=== PATIENT | male | born 1945 | race Caucasian/White ===

== ENCOUNTER 2023-10-30 09:17 | Outpatient (CLI) | payer MEDICARE ==
[2023-10-30 11:37] LABS: #Basophils 0.09 10x3/uL (0.0-0.2); %Basophils 0.7 % (0.0-1.0); %Eosinophils 2.1 % (0.0-10.0); %Lymphocytes 18.2 % (21.0-51.0); %Monocytes 6.7 % (0.0-10.0); %Neutrophils 71.9 % (42.0-75.0); Hematocrit 43.8 % (42.0-52.0); Hemoglobin 13.7 g/dL (14.0-18.0); Mean Corpuscular HGB CONC 31.3 g/dL (32.0-36.0); Mean Corpuscular Hemoglobin 27.1 pg (27.0-31.0); Mean Corpuscular Volume 86.7 fL (78.0-98.0); Mean Platelet Volume 9.8 fL (7.4-10.4); Platelet Count 454 10x3/uL (130-400); RBC Distribution Width 13.8 % (11.5-14.5); Red Blood Cell (RBC) Count 5.05 mill/uL (4.70-6.10)
[2023-10-30 11:49] LABS: Anion Gap 10 mmol/L (10-20); BUN (Urea Nitrogen) 17 mg/dL (8.4-25.7); Calc. Creatinine Clearance 0 mL/min (70-130); Calcium 9.6 mg/dL (7.8-10.44); Carbon Dioxide 27 mmol/L (23-31); Chloride 106 mmol/L (98-107); Estimated GFR 75; Glucose 96 mg/dL (83-110); Potassium 4.2 mmol/L (3.5-5.1); Sodium 139 mmol/L (136-145)
== END 2023-10-30 09:18 | disposition home or self-care (01) ==
LOC: LABBT 09:17
PROVIDERS: ATTEND Orthopaedic Surgery Hand Surgery
DX: Z01.812 Encounter for preprocedural laboratory examination (principal)
CPT/HCPCS: 80048; 85025

== ENCOUNTER 2023-10-31 05:54 | Inpatient (IN) | payer MEDICARE ==
[2023-10-31] MEDS ORDERED: Heparin 10,000 UNITS/ 10 ML VIAL ONE (06:09)
[2023-10-31] MEDS ORDERED: hydrALAZINE 20 MG/ML VIAL ONE (07:39)
[2023-11-07] MEDS ORDERED: Heparin 10,000 UNITS/ 10 ML VIAL ONE ×2 (06:14→08:45)
[2023-11-07] MEDS ORDERED: Bupivacaine PF 0.5% 30 ML VIAL ONE (06:14)
[2023-11-07] MEDS ORDERED: EPINEPHrine 1 MG/ML VIAL ONE (06:14)
[2023-11-07] MEDS ORDERED: Lidocaine 2% PF 5 ML VIAL ONE (06:47)
[2023-11-07] MEDS ORDERED: PROPOFOL 20 ML ONE (06:47)
[2023-11-07] MEDS ORDERED: Midazolam HCl 2 mg/2 ml Vial ONE (06:47)
[2023-11-07] MEDS ORDERED: fentaNYL PF 100 MCG/2 ML SYRINGE ONE (06:47)
[2023-11-07] MEDS ORDERED: Rocuronium Bromide 10 MG/ML (10ML VIAL) ONE (06:47)
[2023-11-07] MEDS ORDERED: Dexamethasone 20 MG/5 ML VIAL ONE (06:54)
[2023-11-07] MEDS ORDERED: Ondansetron PF 4 MG/2 ML Vial ONE (06:54)
[2023-11-07] MEDS ORDERED: Ondansetron ODT 4 MG TAB ONE (07:04)
[2023-11-07] MEDS ORDERED: CEFAZOLIN 2 GM VIAL ONE (07:10)
[2023-11-07] MEDS ORDERED: Sodium Chloride 0.9% 100 ML ONE (07:11)
[2023-11-07] MEDS ORDERED: Glycopyrrolate 0.2 MG/ML 5 ML SYRINGE ONE (07:48)
[2023-11-07] MEDS ORDERED: NEOSTIGMINE 3 MG/3 ML SYRINGE ONE (07:48)
[2023-11-07] MEDS ORDERED: PHENYLEPHRINE-NS 100 MCG/ML 10 ML SYRINGE ONE (07:48)
[2023-11-07] MEDS ORDERED: Phenylephrine 40 MG/NS 250 ML 250 ML ONE (08:06)
[2023-11-07] MEDS ORDERED: Protamine Sulfate 50 MG/5 ML VIAL ONE (08:46)
[2023-11-07] MEDS ORDERED: Ipratropium/Albuterol 3 ML NEB NEB PRN (09:31)
[2023-11-07] MEDS ORDERED: Phenylephrine 40 MG in Sodium Chloride 0.9% 250 ML 250 ML IVPB PRN (09:31)
[2023-11-07] MEDS ORDERED: fentaNYL 50 mcg/mL 1 mL Vial SLOW IVP PRN ×2 (09:31)
[2023-11-07] MEDS ORDERED: traMADol HCl 50 MG TAB PO PRN ×2 (09:31)
[2023-11-07] MEDS ORDERED: Acetaminophen 325 MG TAB PO PRN (09:31)
[2023-11-07] MEDS ORDERED: Phenylephrine 40 MG/NS 250 ML 40 MG in Premix 1 BAG IVPB PRN (09:50)
[2023-11-07 11:48] VITALS: BMI 22.3
[2023-11-07] MEDS: Sodium Chloride 0.9% 1,000 ML IV SCH (11:51)
[2023-11-07] MEDS: Nitroglycerin 50 MG/250 ML BOT 250 ML IVPB PRN (11:52)
[2023-11-07] MEDS: hydrALAZINE 20 MG/ML VIAL SLOW IVP PRN (13:59)
[2023-11-07] MEDS: CEFAZOLIN 2 GM in Sodium Chloride 0.9% 100 ML IVPB SCH (15:40)
[2023-11-07] MEDS: Mometasone 200 MCG/Formoterol 5 MCG 120 PUFF INHALER INH SCH (18:50)
[2023-11-07] MEDS: Fish Oil 1,000 MG CAP PO SCH (20:29)
[2023-11-08 05:53] LABS: #Basophils 0.04 10x3/uL (0.0-0.2); %Basophils 0.2 % (0.0-1.0); %Eosinophils 0.2 % (0.0-10.0); %Lymphocytes 11.7 % (21.0-51.0); %Monocytes 7.2 % (0.0-10.0); %Neutrophils 80.1 % (42.0-75.0); Hemoglobin 12.6 g/dL (14.0-18.0); Mean Corpuscular HGB CONC 32.3 g/dL (32.0-36.0); Mean Corpuscular Hemoglobin 27.3 pg (27.0-31.0); Mean Corpuscular Volume 84.6 fL (78.0-98.0); Mean Platelet Volume 10.3 fL (7.4-10.4); Platelet Count 356 10x3/uL (130-400); RBC Distribution Width 13.9 % (11.5-14.5); Red Blood Cell (RBC) Count 4.61 mill/uL (4.70-6.10)
[2023-11-08] MEDS: Ondansetron PF 4 MG/2 ML Vial IVP PRN (06:13)
[2023-11-08 06:41] LABS: Anion Gap 12 mmol/L (10-20); BUN (Urea Nitrogen) 17 mg/dL (8.4-25.7); Calc. Creatinine Clearance 80 mL/min (70-130); Calcium 8.6 mg/dL (7.8-10.44); Carbon Dioxide 27 mmol/L (23-31); Chloride 106 mmol/L (98-107); Estimated GFR 88; Glucose 104 mg/dL (83-110); Sodium 141 mmol/L (136-145)
[2023-11-08 07:13] VITALS: TEMP 98.5
[2023-11-08] MEDS: Aspirin Chewable 81 MG TAB PO SCH (08:44)
[2023-11-08] MEDS ORDERED: TESTOSTERONE 30 MG/1.5 ML TD SCH (09:00)
== END 2023-11-08 09:00 | disposition home or self-care (01) | DRG 272 ==
LOC: UNDOADMIN 05:54 → SURG A 05:54 → EDSTATUS 11-07 08:30 → CCU 11-07 11:11
PROVIDERS: ADMIT Thoracic Surgery (Cardiothoracic Vascular Surgery); ATTEND Thoracic Surgery (Cardiothoracic Vascular Surgery)
PROC: 04VE3DZ Restriction of Right Internal Iliac Artery with Intraluminal Device, Percutaneous Approach (ICD-10-PCS; principal; 2023-11-07)
DX: I71.40 Abdominal aortic aneurysm, without rupture, unspecified (principal); Z79.899 Other long term (current) drug therapy; Z98.890 Other specified postprocedural states; Z90.49 Acquired absence of other specified parts of digestive tract; Z87.891 Personal history of nicotine dependence
CPT/HCPCS: 36415; 80048; 85025; 86850; 86900; 86901; C1769; C1889; J0171; J0360; J0665; J1100; J1642; J1644; J2001; J2250; J2405; J2704; J2720; J7030; Q0162

== ENCOUNTER 2023-10-31 06:00 | Day surgery (SDC) | payer MEDICARE ==
[2023-10-30 10:04] VITALS: BMI 22.4
[2023-10-31] MEDS ORDERED: Iopamidol 370 76% 100 ML VIAL ONE (11:35)
== END 2023-10-31 10:16 | disposition home or self-care (01) ==
LOC: SDC 06:00
PROVIDERS: ATTEND Thoracic Surgery (Cardiothoracic Vascular Surgery)
PROC: 04CY3ZZ Extirpation of Matter from Lower Artery, Percutaneous Approach (ICD-10-PCS; principal; 2023-10-31)
PROC: B300ZZZ Plain Radiography of Thoracic Aorta (ICD-10-PCS; 2023-10-31)
DX: I71.43 Infrarenal abdominal aortic aneurysm, without rupture (principal); I71.40 Abdominal aortic aneurysm, without rupture, unspecified; Z90.49 Acquired absence of other specified parts of digestive tract; Z98.890 Other specified postprocedural states; Z79.899 Other long term (current) drug therapy; Z87.891 Personal history of nicotine dependence; Z88.0 Allergy status to penicillin
CPT/HCPCS: 37242; 61626; 75894; C1760; C1769 ×2; C1887 ×2; C1889 ×2; C1894; 36246; 75736

== ENCOUNTER 2024-09-09 05:40 | Inpatient (IN) | payer MEDICARE ==
[2024-09-09 06:18] LABS: #Basophils 0.03 10x3/uL (0.0-0.2); #Eosinophils Less than 0.03 10x3/uL (0.0-0.7); #Monocytes 1.46 10x3/uL (0.11-0.59); #Neutrophils 19.81 10x3/uL (1.40-6.50); %Basophils 0.1 % (0.0-1.0); %Eosinophils 0.0 % (0.0-10.0); %Lymphocytes 4.5 % (21.0-51.0); %Monocytes 6.5 % (0.0-10.0); %Neutrophils 88.4 % (42.0-75.0); Hematocrit 47.0 % (42.0-52.0); Hemoglobin 15.9 g/dL (14.0-18.0); Mean Corpuscular Hemoglobin 28.4 pg (27.0-31.0); Mean Corpuscular Volume 84.1 fL (78.0-98.0); Platelet Count 245 10x3/uL (130-400); Red Blood Cell (RBC) Count 5.59 mill/uL (4.70-6.10); White Blood Cell (WBC) Count 22.43 10x3/uL (4.8-10.8)
[2024-09-09 06:31] LABS: ALT (SGPT) 14 U/L (Less than 45); AST (SGOT) 26 U/L (11-34); Albumin 4.5 g/dL (3.1-4.5); Alkaline Phosphatase 70 U/L (40-110); Anion Gap 16 mmol/L (10-20); BUN (Urea Nitrogen) 32 mg/dL (8.4-25.7); Bilirubin, Total 0.7 mg/dL (0.3-1.2); Calc. Creatinine Clearance 0 mL/min (70-130); Calcium 10.0 mg/dL (7.8-10.44); Carbon Dioxide 27 mmol/L (23-31); Chloride 100 mmol/L (98-107); Globulin 4.2 g/dL (2.4-3.5); Glucose 138 mg/dL (83-110); Potassium 4.2 mmol/L (3.5-5.1); Sodium 139 mmol/L (136-145)
[2024-09-09] MEDS ORDERED: Ondansetron PF 4 MG/2 ML Vial ONE (06:35)
[2024-09-09 06:40] LABS: Troponin I 0.213 ng/mL (< 0.028)
[2024-09-09 06:44] LABS: Lipase 23 U/L (8-78); Magnesium 2.3 mg/dL (1.6-2.6)
[2024-09-09 06:55] LABS: Actual Bicarbonate (HCO3v) 20.4 mEq/L (22-28); Analyzer IN Cardio ER; Base Excess -0.8 mEq/L (-2.0 to +3.0); Calcium, Ionized (venous) 0.94 mmol/L (1.16-1.32); Chloride (VBG) 105 mmol/L (98-106); Hematocrit-VBG 42 % (42.0-52.0); Hemoglobin (Hb) 14.4 g/dL (12.6-17.4); Potassium (VBG) 4.24 mmol/L (3.70-5.30); Sodium 137 mmol/L (133-146)
[2024-09-09] MEDS ORDERED: Aspirin Chewable 81 MG TAB ONE (08:17)
[2024-09-09 08:50] LABS: Bacteria/HPF None Seen HPF (None Seen); CAUTI Indications for Culture Alt mental st,lethar; Glucose, Urine (Dipstick) Normal (Negative); Leukocyte Negative Leu/uL (Negative); Protein, Urine (Dipstick) 50 mg/dL (Neg-Trace); RBC/HPF 0-3 HPF (0-3); Specific Gravity, Urine 1.045 (1.002-1.036); WBC/HPF 0-3 HPF (0-3)
[2024-09-09 08:56] LABS: Urine Culture Reflex No No
[2024-09-09] MEDS ORDERED: Enoxaparin 80 MG (0.8 mL) SYRINGE ONE (09:31)
[2024-09-09] MEDS ORDERED: Acetaminophen 325 MG TAB PO PRN (10:22)
[2024-09-09] MEDS ORDERED: Electrolyte Replacement Protocol 1 EACH FS SCH (10:30)
[2024-09-09] MEDS ORDERED: Ondansetron PF 4 MG/2 ML Vial IVP PRN (10:41)
[2024-09-09] MEDS ORDERED: Iopamidol-370 76% 500 ML MDV (1 ML CHARGE) ONE (11:26)
[2024-09-09 12:42] VITALS: BMI 21.9
[2024-09-09 12:42] LABS: Hematocrit 38.7 % (42.0-52.0); Hemoglobin 12.6 g/dL (14.0-18.0); Platelet Count 214 10x3/uL (130-400)
[2024-09-09] MEDS: VANCOMYCIN 1.75 GM/350 ML Premix BAG IVPB SCH (15:13)
[2024-09-09] MEDS: Mineral Oil ENEMA PR SCH (15:13)
[2024-09-09 15:16] LABS: Hematocrit 42.7 % (42.0-52.0); Hemoglobin 13.6 g/dL (14.0-18.0)
[2024-09-09 15:46] LABS: Troponin I 0.219 ng/mL (< 0.028)
[2024-09-09] MEDS: Mometasone 200 MCG/Formoterol 5 MCG 120 PUFF INHALER INH SCH (18:27)
[2024-09-09 19:05] LABS: Troponin I 0.185 ng/mL (< 0.028)
[2024-09-09] MEDS ORDERED: Vancomycin 1 GM in Sodium Chloride 0.9% 250 ML 250 ML IVPB SCH (21:00)
[2024-09-09] MEDS: Enoxaparin 80 MG (0.8 mL) SYRINGE SC SCH (22:02)
[2024-09-10 03:59] LABS: #Basophils 0.05 10x3/uL (0.0-0.2); #Eosinophils 0.07 10x3/uL (0.0-0.7); #Monocytes 1.73 10x3/uL (0.11-0.59); #Neutrophils 12.56 10x3/uL (1.40-6.50); %Basophils 0.3 % (0.0-1.0); %Eosinophils 0.4 % (0.0-10.0); %Lymphocytes 12.6 % (21.0-51.0); %Monocytes 10.4 % (0.0-10.0); %Neutrophils 75.9 % (42.0-75.0); Hematocrit 37.8 % (42.0-52.0); Hemoglobin 12.0 g/dL (14.0-18.0); Mean Corpuscular Hemoglobin 27.5 pg (27.0-31.0); Mean Corpuscular Volume 86.5 fL (78.0-98.0); Platelet Count 203 10x3/uL (130-400); Red Blood Cell (RBC) Count 4.37 mill/uL (4.70-6.10); White Blood Cell (WBC) Count 16.56 10x3/uL (4.8-10.8)
[2024-09-10 04:20] LABS: Anion Gap 11 mmol/L (10-20); BUN (Urea Nitrogen) 26 mg/dL (8.4-25.7); Calc. Creatinine Clearance 62 mL/min (70-130); Calcium 8.1 mg/dL (7.8-10.44); Carbon Dioxide 25 mmol/L (23-31); Chloride 105 mmol/L (98-107); Glucose 97 mg/dL (83-110); Potassium 3.9 mmol/L (3.5-5.1); Sodium 137 mmol/L (136-145); Vancomycin, Random 10.4 ug/mL (See Comment)
[2024-09-10] MEDS: Aspirin Chewable 81 MG TAB PO SCH (09:29)
[2024-09-10] MEDS: Vancomycin 1.5 GM / NS 500 ML VIAL-2-BAG IVPB SCH (16:15)
[2024-09-10] MEDS: Melatonin 3 MG TAB PO PRN (20:33)
[2024-09-11 03:49] LABS: #Basophils 0.08 10x3/uL (0.0-0.2); #Eosinophils 0.33 10x3/uL (0.0-0.7); #Monocytes 1.33 10x3/uL (0.11-0.59); #Neutrophils 7.57 10x3/uL (1.40-6.50); %Basophils 0.7 % (0.0-1.0); %Eosinophils 2.8 % (0.0-10.0); %Lymphocytes 21.5 % (21.0-51.0); %Monocytes 11.2 % (0.0-10.0); %Neutrophils 63.4 % (42.0-75.0); Hematocrit 38.9 % (42.0-52.0); Hemoglobin 12.5 g/dL (14.0-18.0); Mean Corpuscular Hemoglobin 27.6 pg (27.0-31.0); Mean Corpuscular Volume 85.9 fL (78.0-98.0); Platelet Count 219 10x3/uL (130-400); Red Blood Cell (RBC) Count 4.53 mill/uL (4.70-6.10); White Blood Cell (WBC) Count 11.92 10x3/uL (4.8-10.8)
[2024-09-11 04:03] LABS: Anion Gap 13 mmol/L (10-20); BUN (Urea Nitrogen) 21 mg/dL (8.4-25.7); Calc. Creatinine Clearance 71 mL/min (70-130); Calcium 8.1 mg/dL (7.8-10.44); Carbon Dioxide 26 mmol/L (23-31); Chloride 103 mmol/L (98-107); Glucose 91 mg/dL (83-110); Potassium 3.7 mmol/L (3.5-5.1); Sodium 138 mmol/L (136-145)
[2024-09-11] MEDS: Lisinopril 20 MG TAB PO SCH (09:25)
[2024-09-11] MEDS: hydrALAZINE 20 MG/ML VIAL SLOW IVP PRN (16:34)
[2024-09-11] MEDS: Apixaban 5 MG TAB PO SCH (22:16)
[2024-09-12 04:00] LABS: #Basophils 0.08 10x3/uL (0.0-0.2); #Eosinophils 0.38 10x3/uL (0.0-0.7); #Monocytes 1.12 10x3/uL (0.11-0.59); #Neutrophils 8.55 10x3/uL (1.40-6.50); %Basophils 0.6 % (0.0-1.0); %Eosinophils 2.9 % (0.0-10.0); %Lymphocytes 21.0 % (21.0-51.0); %Monocytes 8.7 % (0.0-10.0); %Neutrophils 66.3 % (42.0-75.0); Hematocrit 42.3 % (42.0-52.0); Hemoglobin 13.6 g/dL (14.0-18.0); Mean Corpuscular Hemoglobin 27.3 pg (27.0-31.0); Mean Corpuscular Volume 84.8 fL (78.0-98.0); Platelet Count 290 10x3/uL (130-400); Red Blood Cell (RBC) Count 4.99 mill/uL (4.70-6.10); White Blood Cell (WBC) Count 12.91 10x3/uL (4.8-10.8)
[2024-09-12 04:23] LABS: Anion Gap 12 mmol/L (10-20); BUN (Urea Nitrogen) 15 mg/dL (8.4-25.7); Calc. Creatinine Clearance 75 mL/min (70-130); Calcium 8.9 mg/dL (7.8-10.44); Carbon Dioxide 26 mmol/L (23-31); Chloride 102 mmol/L (98-107); Glucose 102 mg/dL (83-110); Potassium 3.3 mmol/L (3.5-5.1); Sodium 137 mmol/L (136-145)
[2024-09-12 07:36] VITALS: TEMP 97.9
[2024-09-12] MEDS: Communication Order-Pharmacy FS ONE (07:59)
[2024-09-12 11:06] VITALS: BP 157/81
[2024-09-18] MEDS ORDERED: Apixaban 5 MG TAB PO SCH (21:00)
== END 2024-09-12 16:16 | disposition home or self-care (01) | DRG 871 ==
LOC: ERS 05:40 → ERHOLD 09:11 → 2SE 12:11
PROVIDERS: ADMIT Hospitalist; ATTEND Hospitalist
DX: A41.59 Other Gram-negative sepsis (principal); I21.A1 Myocardial infarction type 2; I26.94 Multiple subsegmental thrombotic pulmonary emboli without acute cor pulmonale; I26.99 Other pulmonary embolism without acute cor pulmonale; R65.21 Severe sepsis with septic shock; J45.909 Unspecified asthma, uncomplicated; B96.89 Other specified bacterial agents as the cause of diseases classified elsewhere; I10 Essential (primary) hypertension; Z98.890 Other specified postprocedural states; Z88.0 Allergy status to penicillin; Z79.899 Other long term (current) drug therapy; Z79.82 Long term (current) use of aspirin; Z87.891 Personal history of nicotine dependence
CPT/HCPCS: 36415; 36416; 70450; 71275; 72125; 74177; 80048; 80053; 80202; 81001; 82805; 83605; 83690; 83735; 84484; 85025; 87040; 87077; 87086; 87149; 87186; 87428; 93005; 93306; 93970; 94664; 94760; 96361; 96365; 96372; 96375; J0360; J1650; J2405; J2543; J3375; J7030; Q9967